=== PATIENT | female | born 1985 | race Caucasian/White ===

== ENCOUNTER 2021-09-25 07:50 | Emergency (ER) | payer BC ==
[2021-09-25] MEDS: Albuterol/Ipratropium 3.0-0.5 MG/3 ML Neb Soln NEB ONE (08:00)
[2021-09-25 08:05] VITALS: BP 161/108; PULSE 103
[2021-09-25] MEDS: methylPREDNISolone Sodium Succinate 125 MG/2 ML SDV IVPUSH STA (08:28)
[2021-09-25] MEDS: Sodium Chloride 0.9% 1,000 ML IV ONE (08:38)
[2021-09-25] MEDS: Albuterol 0.083% 2.5 MG/3 ML Neb Soln NEB ONE (09:07)
== END 2021-09-25 10:05 | disposition home or self-care (01) ==
LOC: CC.ED 07:50
DX: J45.901 Unspecified asthma with (acute) exacerbation (principal); Z86.16 Personal history of COVID-19; Z88.2 Allergy status to sulfonamides; Z88.0 Allergy status to penicillin; Z91.048 Other nonmedicinal substance allergy status; Z20.822 Contact with and (suspected) exposure to COVID-19
CPT/HCPCS: 36415; 71046; 80053; 85025; 94640; 96374; 99284; 99285-25; J2930; J7030; J7613-GY; J7620-GY; U0002